=== PATIENT | female | born 1965 | race Caucasian/White ===

== ENCOUNTER 2019-02-07 10:02 | Outpatient (CLI) | payer MEDICARE, MEDICAID ==
[2019-02-07 10:52] LABS: BASOPHILS % (AUTO) 0.5 %; EOSINOPHILS # (AUTO) 0.2 10^3/uL (0.0-0.7); EOSINOPHILS % (AUTO) 2.6 %; HGB - HEMOGLOBIN 12.2 g/dL (12.0-16.0); LYMPHOCYTES # (AUTO) 2.8 10^3/uL (1.5-3.5); LYMPHOCYTES % (AUTO) 34.7 %; MEAN CORPUSCULAR HEMOGLOBIN 30.2 pg (27.0-31.0); MEAN CORPUSCULAR HGB CONC 33.2 g/dL (32.0-36.0); MEAN CORPUSCULAR VOLUME 91.1 fL (81.0-99.0); MEAN PLATELET VOLUME 8.9 fL (7.9-10.8); MONOCYTES # (AUTO) 0.6 10^3/uL (0.0-1.0); MONOCYTES % (AUTO) 6.9 %; NEUTROPHILS # (AUTO) 4.4 10^3/uL (1.5-6.6); NEUTROPHILS % (AUTO) 54.9 %; PLT - PLATELET COUNT 416 10^3/uL (130-450); RED BLOOD COUNT 4.04 10^6/uL (4.20-5.40); RED CELL DISTRIBUTION WIDTH 12.7 % (12.0-15.0); WHITE BLOOD COUNT 8.1 x10^3/uL (4.8-10.8)
[2019-02-07 11:35] LABS: ALBUMIN 3.8 g/dL (3.2-5.5); ALBUMIN/GLOBULIN RATIO 1.4 (1.0-2.2); ALKALINE PHOSPHATASE 72 IU/L (42-121); ALT ALANINE AMINOTRANSFERASE 18 IU/L (10-60); AST ASPARTATE AMINOTRANSFERASE 15 IU/L (10-42); BILIRUBIN,TOTAL 0.5 mg/dL (0.2-1.0); BUN - BLOOD UREA NITROGEN 10 mg/dL (6-20); CARBON DIOXIDE - CO2 25 mmol/L (21-32); CHLORIDE 106 mmol/L (101-111); CHOLESTEROL 147 mg/dL; CREATININE 0.9 mg/dL (0.4-1.0); GFR - MDRD 65 (>89); GLUCOSE 97 mg/dL (70-100); HDL CHOLESTEROL 37 mg/dL; LDL CHOLESTEROL,CALCULATED 77 mg/dL; LDL/HDL RATIO 2.1 (<4.4); SODIUM 140 mmol/L (135-145); TOTAL PROTEIN 6.6 g/dL (6.7-8.2); VLDL CHOLESTEROL 33 mg/dL
--- NOTE | 2019-02-07 14:12 | Ultrasound Report ---
Reason: LIPOMA OF ABDOMINAL WALL Procedure Date: 02/07/2019 Accession Number: [id number] / [id number] Procedure: US - Abdomen Limited CPT Code: FULL RESULT: EXAM: ABDOMEN ULTRASOUND LIMITED, RUQ EXAM DATE: 02/07/2019 11:11 AM. CLINICAL HISTORY: Lipoma of abdominal wall. COMPARISON: None. TECHNIQUE: Real-time scanning was performed with static images obtained. FINDINGS: Abdominal wall soft tissues as indicated by the patient were interrogated for the focally palpable finding. No mass or collection is identified. IMPRESSION: Normal soft tissues. RADIA
== END 2019-02-07 10:03 | disposition home or self-care (01) ==
LOC: DI 10:02
PROVIDERS: ATTEND Physician Assistant
DX: D17.79 Benign lipomatous neoplasm of other sites (principal); K58.9 Irritable bowel syndrome, unspecified; K59.00 Constipation, unspecified; E66.9 Obesity, unspecified; K21.9 Gastro-esophageal reflux disease without esophagitis; J45.20 Mild intermittent asthma, uncomplicated
CPT/HCPCS: 36415; 76705; 80053; 80061; 83721; 84443; 85025

== ENCOUNTER 2019-02-21 08:00 | Outpatient (CLI) | payer MEDICARE, MEDICAID | END 2019-02-21 08:01 | disposition home or self-care (01) | LOC: LAB.WCP 08:00 | PROVIDERS: ATTEND Physician Assistant | DX: R39.15 Urgency of urination (principal) | CPT/HCPCS: 81002 ==

== ENCOUNTER 2019-02-24 10:30 | Outpatient (CLI) | payer MEDICARE, MEDICAID ==
[2019-02-24 23:03] LABS: TRICHOMONAS VAGINALIS DNA NEGATIVE (NEGATIVE)
== END 2019-02-24 23:59 | disposition home or self-care (01) ==
LOC: LAB.WCP 10:30
PROVIDERS: ATTEND Physician Assistant
DX: Z20.2 Contact with and (suspected) exposure to infections with a predominantly sexual mode of transmission (principal)
CPT/HCPCS: 87491; 87591; 87661

== ENCOUNTER 2019-02-27 15:03 | Outpatient (CLI) | payer MEDICARE, MEDICAID ==
[2019-02-27] MEDS ORDERED: IOVERSOL 320 100 ML VIAL IVP ONE ×2 (15:14→16:39)
[2019-02-27] MEDS ORDERED: IOVERSOL 320 50 ML VIAL ONE (15:14)
[2019-02-27] MEDS ORDERED: IOVERSOL 320 50 ML VIAL PO ONE (16:39)
--- NOTE | 2019-02-28 06:43 | CT Report ---
Reason: SUBCUTANEOUS MASS OF ABDOMINAL WALL Procedure Date: 02/27/2019 Accession Number: [id number] / [id number] Procedure: CT - Abdomen/Pelvis W CPT Code: FULL RESULT: EXAM: CT ABDOMEN AND PELVIS EXAM DATE: 02/27/2019 04:09 PM. CLINICAL HISTORY: SUBCUTANEOUS MASS OF ABDOMINAL WALL. COMPARISONS: ABDOMEN LIMITED 02/07/2019 10:53 AM. TECHNIQUE: Routine helical CT imaging was performed through the abdomen and pelvis. IV contrast: OPTI 320 100ML. Enteric contrast: Yes. Reconstructions: Coronal and sagittal. In accordance with CT protocol optimization, one or more of the following dose reduction techniques were utilized for this exam: automated exposure control, adjustment of mA and/or KV based on patient size, or use of iterative reconstructive technique. FINDINGS: Lung Bases: Unremarkable. Liver: Mild hepatomegaly with right hepatic lobe measuring 21.1 cm in craniocaudal dimension. Multiple small hypodense hepatic lesion suggestive of cysts. Gallbladder/Bile Ducts: Partially contracted gallbladder. No radiopaque gallstones. No biliary dilation. Spleen: Lobulated spleen with probable splenule inseparable from the pancreatic tail. Pancreas: No peripancreatic fluid or inflammation. Probable splenule inseparable from pancreatic tail. Adrenal Glands: Mild fullness of left adrenal gland without distinct nodule. Unremarkable right adrenal gland. Kidneys: Subcentimeter right renal cyst. Small nonobstructive left lower pole renal calculus. Suspect punctate nonobstructive right lower pole renal calculus. No hydronephrosis or ureteral calculus. Peritoneal Cavity/Bowel: No free fluid, free air or adenopathy. No masses or acute inflammatory process. The appendix is well visualized and normal. No bowel obstruction or significant bowel wall thickening. Colonic diverticula without evidence of acute diverticulitis. Pelvic Organs: Normal. The bladder and visualized pelvic organs are within normal limits. Vasculature: No aneurysms or other significant abnormality. Bones: No acute abnormality. Degenerative change at L5-S1. Other: Infraumbilical ventral hernia just right of midline containing fat with minimal stranding within the fat surrounding hernia and at base of hernia. Hernia measures approximately 8.0 x 3.3 x 5.3 cm. IMPRESSION: 1. Fat-containing infraumbilical ventral hernia just to the right of midline with minimal stranding within fat surrounding hernia and at base of hernia. Strangulation/incarceration of fat within herniated not excluded in the appropriate clinical setting. Correlate for associated symptoms. Fat-containing hernia may correspond to palpable abdominal wall mass. 2. Small nonobstructive lower pole renal calculi. No hydronephrosis or ureteral calculus. 3. Mild hepatomegaly and hypodense hepatic lesions suggestive of hepatic cysts. 4. Few colonic diverticula without evidence of acute diverticulitis. RADIA
== END 2019-02-27 15:04 | disposition home or self-care (01) ==
LOC: DI 15:03
PROVIDERS: ATTEND Physician Assistant
DX: K43.9 Ventral hernia without obstruction or gangrene (principal); N20.0 Calculus of kidney; R16.0 Hepatomegaly, not elsewhere classified; K57.30 Diverticulosis of large intestine without perforation or abscess without bleeding
CPT/HCPCS: 74177; Q9967

== ENCOUNTER 2019-04-14 16:11 | Outpatient (CLI) | payer MEDICARE, MEDICAID ==
--- NOTE | 2019-04-14 18:05 | XRAY Report ---
Reason: CHRONIC PX SUB 5TH MT BASE RT FOOT Procedure Date: 04/14/2019 Accession Number: [id number] / [id number] Procedure: XR - Foot 3 View RT CPT Code: FULL RESULT: EXAM: RIGHT FOOT RADIOGRAPHY EXAM DATE: 04/14/2019 04:31 PM. CLINICAL HISTORY: Chronic pain sub 5th metatarsal base right foot. COMPARISON: None. TECHNIQUE: 3 views. FINDINGS: Bones: Plantar calcaneal spur. No fractures or bone lesions. Joints: Minimal first metatarsophalangeal joint degenerative changes. No subluxations. Soft Tissues: Normal. No soft tissue swelling. IMPRESSION: 1. No acute abnormality seen in the right foot. 2. Minimal first metatarsophalangeal joint degenerative changes. RADIA
== END 2019-04-14 16:12 | disposition home or self-care (01) ==
LOC: DI 16:11
PROVIDERS: ATTEND Podiatrist
DX: M19.071 Primary osteoarthritis, right ankle and foot (principal)

== ENCOUNTER 2019-05-05 08:00 | Outpatient (CLI) | payer MEDICARE, MEDICAID ==
[2019-05-05 21:26] LABS: CANDIDA GROUP DNA NEGATIVE (NEGATIVE); CANDIDA KRUSEI DNA NEGATIVE (NEGATIVE); TRICHOMONAS VAGINALIS DNA NEGATIVE (NEGATIVE)
== END 2019-05-05 23:59 | disposition home or self-care (01) ==
LOC: LAB.R 08:00
PROVIDERS: ATTEND Obstetrics & Gynecology
DX: N76.0 Acute vaginitis (principal)
CPT/HCPCS: 87661; 87801

== ENCOUNTER 2019-05-26 16:30 | Outpatient (CLI) | payer MEDICARE, MEDICAID ==
--- NOTE | 2019-05-29 01:21 | XRAY Report ---
Reason: PAINFUL L FOOT Procedure Date: 05/26/2019 Accession Number: [id number] / [id number] Procedure: XR - Foot 3 View LT CPT Code: FULL RESULT: EXAM: LEFT FOOT RADIOGRAPHY EXAM DATE: 05/26/2019 05:03 PM. CLINICAL HISTORY: PAINFUL L FOOT. COMPARISON: FOOT 3 VIEW RT 04/14/2019 4:25 PM. TECHNIQUE: 3 views. FINDINGS: Bones: No fractures or bone lesions. Large plantar calcaneal spur. Joints: No subluxation. Lisfranc alignment appears intact. Soft Tissues: No significant soft tissue abnormalities. IMPRESSION: 1. No acute osseous abnormalities. 2. Lisfranc alignment appears intact. 3. Large plantar calcaneal spur. RADIA
== END 2019-05-26 16:31 | disposition home or self-care (01) ==
LOC: DI 16:30
PROVIDERS: ATTEND Podiatrist
DX: M77.32 Calcaneal spur, left foot (principal)

== ENCOUNTER 2019-06-26 15:07 | Outpatient (CLI) | payer MEDICARE, MEDICAID | END 2019-06-26 15:08 | disposition home or self-care (01) | LOC: RT 15:07 | PROVIDERS: ATTEND Surgery | DX: Z01.810 Encounter for preprocedural cardiovascular examination (principal); K43.9 Ventral hernia without obstruction or gangrene | CPT/HCPCS: 93005 ==

== ENCOUNTER 2019-06-27 06:11 | Day surgery (SDC) | payer MEDICARE, MEDICAID ==
[2019-06-27] MEDS ORDERED: LACTATED RINGERS 1,000 ML IV ONE (06:48)
--- NOTE | 2019-06-27 07:06 | ANESTHESIA ---
Pre-Anesthesia VS, & Labs - Diagnosis ventral hernia - Procedure ventral hernia repair Vital Signs: Temp Pulse Resp BP Pulse Ox 36.1 C L 67 18 163/108 H 98 06/27/19 06:35 06/27/19 06:35 06/27/19 06:35 06/27/19 06:35 06/27/19 06:35 Height 5 ft 3 in Weight (kg) 116.8 kg - NPO >8 hours - Is Patient ?: No Home Medications and Allergies Home Medications: Ambulatory Orders Albuterol Sulf [Ventolin Hfa Inhaler] 1 - 2 puffs INH Q4HR PRN 06/26/19 Aspirin/Acetaminophen/Caffeine [Excedrin Migraine Caplet] 1 each PO ONCE PRN 06/26/19 Albuterol Sulf [Ventolin Hfa Inhaler] 1 - 2 puffs INH Q4HR PRN 06/26/19 Aspirin/Acetaminophen/Caffeine [Excedrin Migraine Caplet] 1 each PO ONCE PRN 06/26/19 Allergies/Adverse Reactions: Allergies Allergy/AdvReac Type Severity Reaction Status Date / Time No Known Drug Allergies Allergy Verified 06/26/19 11:08 Anes History & Medical History - Anesthetic History Anesthesia Complications: reports: No previous complications - Medical History Cardiovascular: reports: None Pulmonary: reports: Asthma Gastrointestinal: reports: Colon polyps. denies: GERD Urinary: reports: None Neuro: reports: Migraines Musculoskeletal: reports: Osteoarthritis Endocrine/Autoimmune: reports: None Skin: reports: Other Smoking Status: Never smoker - Surgical History General: Colonoscopy Gynecologic: section, LEEP (Cervical surgery) Dermatologic: Skin cancer surgery Exam General: Alert Dental: WNL Mouth Opening: Greater than 4 Fingerbreadths Mallampati classification: II Thyromental Distance: greater than 6 cm Respiratory: Decreased breath sounds Cardiovascular: Regular rate, Normal S1, Normal S2 Mental/Cognitive Status: Alert/Oriented X3 Plan Anesthesia Type: General Consent for Procedure(s) Verified and Reviewed: Yes Code Status: Attempt Resuscitation ASA classification: 2-Mild systemic disease Is this case an emergency?: No
[2019-06-27] MEDS ORDERED: CEFAZOLIN SODIUM IN 0.9 % NACL 2 GM/100 ML BAG IV ONE (07:13)
[2019-06-27] MEDS ORDERED: ceFAZolin 1 GM VIAL ONE (07:17)
[2019-06-27] MEDS ORDERED: PROPOFOL 200 MG/20 ML VIAL IVP ONE (07:34)
[2019-06-27] MEDS ORDERED: KETOROLAC 30 MG/ML VIAL IVP ONE (07:34)
[2019-06-27] MEDS ORDERED: LIDOCAINE-MPF 2% 5 ML VIAL IM ONE (07:34)
[2019-06-27] MEDS ORDERED: MIDAZOLAM 2 MG/2 ML VIAL IVP ONE (07:34)
[2019-06-27] MEDS ORDERED: DEXAMETHASONE 4 MG/ML VIAL IVP ONE (07:34)
[2019-06-27] MEDS ORDERED: fentaNYL 100 MCG/2 ML VIAL IVP ONE (07:34)
[2019-06-27] MEDS ORDERED: ONDANSETRON 4 MG/2 ML VIAL IVP ONE (07:34)
[2019-06-27] MEDS: LIDOCAINE 1%-EPI 1:100000 20 ML MDV ONE ×2 (07:51→08:30)
[2019-06-27] MEDS: BUPIVACAINE 0.5% PF 30 ML VIAL ONE ×2 (07:51→08:30)
--- NOTE | 2019-06-27 08:40 | OPERATIVE REPORT ---
Operative Report - General Procedure Date: 06/27/19 Planned Procedure: Ventral Hernia Repair Pre-Op Diagnosis: Painful incarcerated ventral hernia Procedure Performed: Ventral Hernia Repair Post Op Diagnosis: Painful and incarcerated ventral hernia - Procedure Note Primary Surgeon: Brady Anesthesia Provider: JUAN JOSE Bains Anesthesia Technique: General LMA, Local Pathology: None Estimated Blood Loss (mL): 10 Findings: 2.5 cm circular defect with a 9 cm hernia sack containing omentum Complications: None apparent - Other Other Information/Narrative: After obtaining informed consent, the patient is brought to the operating room and placed in the supine position on the operating table. Following successful induction of general anesthesia, appropriate padding of all bony prominences, and placement of appropriate monitors, the abdomen was prepped and draped in the standard surgical fashion. A timeout was held per scope protocol. All elements of the surgical safety checklist were followed before, during, and after the procedure. Following infiltration with local anesthetic to create a field block, an incision was created inferior to the umbilicus and carried down through the skin and subcutaneous tissue. This was at the site where the CT had identified the hernia. The hernia sac was immediately identified. A Anthony retractor was placed in the edges of the hernia carefully defined. The hernia itself contained a knuckle of omentum that was viable. The hernia sac was removed from the omentum and the omentum placed back into the abdominal cavity without injury . What remained was a 2.5 cm defect that had held a 9 cm hernia.We elected to repair the defect with a ventral Phillip patch. A 6.4 cm patch was chosen. It was dipped briefly in Ancef solution and the deployed into the defect. The anterior leaflets were then sewn to the fascia with Vicryl suture.The wound was checked for hemostasis and irrigated with Ancef containing solution. It was closed in multiple layers with Vicryl and Monocryl suture. All sponge, needle, and instrument counts were correct at the conclusion of the case. The patient was allowed to awaken from anesthesia without difficulty and taken to the postanesthesia care unit in good condition.
[2019-06-27] MEDS ORDERED: ONDANSETRON 4 MG/2 ML VIAL IVP PRN (08:50)
[2019-06-27] MEDS ORDERED: ACETAMINOPHEN 325 MG TABLET PO PRN (08:50)
[2019-06-27] MEDS ORDERED: IBUPROFEN 600 MG TABLET PO PRN (08:50)
[2019-06-27] MEDS ORDERED: HYDROmorphone 0.5 MG/0.5 ML SYRINGE ONE (09:06)
[2019-06-27] MEDS ORDERED: ACETAMINOPHEN 1,000 MG/100 ML 100 ML IV ONE (09:06)
[2019-06-27] MEDS ORDERED: oxyCODONE 5 MG TABLET ONE (09:41)
[2019-06-27] MEDS: oxyCODONE 5 MG TABLET PO PRN ×3 (13:56→23:59)
[2019-06-27] MEDS: KETOROLAC 30 MG/ML VIAL IVP PRN ×2 (16:20→22:49)
[2019-06-27] MEDS: SODIUM CHLORIDE FLUSH 0.9% 10 ML SYRINGE IVP SCH (16:20)
[2019-06-27] MEDS: SODIUM CHLORIDE FLUSH 0.9% 10 ML SYRINGE IVP PRN ×2 (22:50→23:59)
[2019-06-28] MEDS: SODIUM CHLORIDE FLUSH 0.9% 10 ML SYRINGE IVP SCH ×2 (00:06→08:26)
[2019-06-28] MEDS: oxyCODONE 5 MG TABLET PO PRN (04:18)
[2019-06-28 08:07] VITALS: BP 118/61
[2019-06-28] MEDS ORDERED: ENOXAPARIN 40 MG/0.4 ML SYRINGE SUBQ SCH (09:00)
--- NOTE | 2019-06-28 09:42 | Discharge Plan ---
Discharge Plan Problem Reviewed?: Yes Disposition: Home, Self Care Condition: Good Prescriptions: Ondansetron Odt [Zofran] 4 mg TL Q6H PRN #10 tablet PRN Reason: Nausea / Vomiting oxyCODONE [Roxicodone] 5 mg PO Q4-6H PRN #20 tablet PRN Reason: Pain Diet: Regular Activity Restrictions: Do not lift more than 10 pound for 6 weeks Shower Restrictions: No Driving Restrictions: Yes (Do not drive while taking narcotic pain medication) No Smoking: If you smoke, Please STOP! Call for help. Follow-up with: Madeline Ruggiero PA [Primary Care Provider] -
== END 2019-06-28 11:45 | disposition home or self-care (01) ==
LOC: SDS 06:11 → MS2 11:16 → SDS 06-28 11:45
PROVIDERS: ATTEND Surgery
PROC: 0WUF0JZ Supplement Abdominal Wall with Synthetic Substitute, Open Approach (ICD-10-PCS; principal; 2019-06-27 07:30)
DX: K43.6 Other and unspecified ventral hernia with obstruction, without gangrene (principal); J45.20 Mild intermittent asthma, uncomplicated; E66.9 Obesity, unspecified; G80.9 Cerebral palsy, unspecified; Z68.42 Body mass index [BMI] 45.0-49.9, adult; Z79.899 Other long term (current) drug therapy
CPT/HCPCS: 49561; 49568; A9270; C1781; J0131; J0690; J1170; J1650; J7120

== ENCOUNTER 2019-07-15 14:01 | Outpatient (CLI) | payer MEDICARE, MEDICAID ==
--- NOTE | 2019-07-16 15:45 | XRAY Report ---
Reason: RIGHT THUMB PAIN Procedure Date: 07/15/2019 Accession Number: [id number] / [id number] Procedure: XR - Finger(s) RT CPT Code: Final Report FULL RESULT: EXAM: RIGHT FIRST DIGIT RADIOGRAPHY EXAM DATE: 07/15/2019 02:17 PM. CLINICAL HISTORY: RIGHT THUMB PAIN. COMPARISON: None. TECHNIQUE: 3 views. FINDINGS: Bones: No fractures or bone lesions. Joints: Mild DJD first MCP joint. Otherwise unremarkable. Soft Tissues: Unremarkable. IMPRESSION: 1. No acute osseous abnormality. RADIA
== END 2019-07-15 14:02 | disposition home or self-care (01) ==
LOC: DI 14:01
PROVIDERS: ATTEND Physician Assistant
DX: M79.644 Pain in right finger(s) (principal)
CPT/HCPCS: 73140

== ENCOUNTER 2020-05-27 15:24 | Outpatient (CLI) | payer MEDICARE, MEDICAID ==
[2020-05-27] MEDS ORDERED: IOVERSOL 320 100 ML VIAL IVP ONE ×2 (15:40→18:35)
[2020-05-27] MEDS ORDERED: IOVERSOL 320 50 ML VIAL ONE (15:40)
--- NOTE | 2020-05-27 18:30 | CT Report ---
PROCEDURE: Abdomen/Pelvis W INDICATIONS: ABDOMINAL PAIN CONTRAST: IV CONTRAST: Optiray 320 ml: 100 PO CONTRAST: Optiray 320 ml50 TECHNIQUE: After the administration of oral and intravenous contrast, 5 mm thick sections acquired from the diap hragms to the symphysis. 5 mm thick coronal and sagittal reformats were acquired. For radiation dos e reduction, the following was used: automated exposure control, adjustment of mA and/or kV accordin g to patient size. COMPARISON: None. FINDINGS: Image quality: Excellent. ABDOMEN: Lung bases: Lung bases are clear. Heart size is normal. Tiny hiatal hernia. Solid organs: Liver and spleen are normal in size. There are multiple low-density nodules in liver, most likely cysts or hemangiomas. Gallbladder is normal Biliary system is non dilated. Pancreas en hances normally. No adrenal nodules. Kidneys demonstrate normal size and enhancement, without hydro nephrosis. Peritoneum and bowel: Bowel loops demonstrate normal wall thickness and caliber. There are colonic diverticula. No CT findings to suggest acute diverticulitis. No free fluid or air. Nodes and vessels: No retroperitoneal or mesenteric adenopathy by size criteria. Aorta and inferior vena cava are normal in size. Miscellaneous: There is diastases of rectus abdominis sheath. Mild stranding of anterior abdominal w all wound a midline surgical scar. PELVIS: Genitourinary: Bladder wall thickness is normal. Miscellaneous: No inguinal hernias. Enlarged inguinal lymph nodes are present bilaterally measuring up to 1.3 cm. Bones: No suspicious bony lesions. No vertebral body compression fractures. Mild degenerative carrillo ges in the lower thoracic and lumbar spine. IMPRESSION: 1. Diverticulosis without acute diverticulitis. 2. Diastases of rectus abdominis sheath, but no ventral hernia. 3. Mildly enlarged inguinal lymph nodes laterally measure up to 1.3 cm. The lymph nodes are most like ly reactive. Recommend clinical follow-up. 4. Hepatic steatosis. 5. Small hepatic hypodensities are most likely cysts or hemangiomas. Reviewed by: Stefany Bro MD on 05/27/2020 6:29 PM PDT Approved by: Stefany Bro MD on 05/27/2020 6:29 PM PDT Station ID: [id number]
[2020-05-27] MEDS ORDERED: IOVERSOL 320 50 ML VIAL PO ONE (18:35)
== END 2020-05-27 15:25 | disposition home or self-care (01) ==
LOC: DI 15:24
PROVIDERS: ATTEND Internal Medicine
DX: K57.30 Diverticulosis of large intestine without perforation or abscess without bleeding (principal); M62.08 Separation of muscle (nontraumatic), other site; R59.0 Localized enlarged lymph nodes; K76.0 Fatty (change of) liver, not elsewhere classified; R93.2 Abnormal findings on diagnostic imaging of liver and biliary tract
CPT/HCPCS: 74177; Q9967

== ENCOUNTER 2021-02-07 15:07 | Outpatient (CLI) | payer MEDICARE, MEDICAID ==
--- NOTE | 2021-02-07 16:53 | Ultrasound Report ---
PROCEDURE: Pelvic Complete INDICATIONS: ABN PX TECHNIQUE: Real-time transabdominal scanning was performed of the pelvic organs, with image documentation. COMPARISON: None FINDINGS: Examination limited by body habitus. Uterus: Uterus is normal in size at 9.4 x 3.7 x 5.6 cm. Endometrium measures 4 mm in combined thick ness. Ovaries: Not seen. No adnexal masses. Other: No free pelvic fluid. IMPRESSION: Limited negative examination. Reviewed by: Jessie Maki MD on 02/07/2021 4:52 PM PDT Approved by: Jessie Maki MD on 02/07/2021 4:52 PM PDT Station ID: [id number]
--- NOTE | 2021-02-07 17:02 | Ultrasound Report ---
PROCEDURE: Abdomen Complete INDICATIONS: ABD PAIN TECHNIQUE: Real-time scanning was performed of the abdominal and retroperitoneal organs, with image documentatio n. COMPARISON: None. FINDINGS: Examination is limited by body habitus. Liver: Liver is enlarged, measuring 19.7 cm and demonstrates diffusely increased echogenicity. Multi ple hepatic cysts are present. Gallbladder: Demonstrates a polyp within the anterior wall measuring 3 mm. No wall thickening. No cho lelithiasis. Biliary ducts: Intrahepatic bile ducts are non-dilated. Extrahepatic bile duct caliber measures 5 m m. Normal is 6-7 mm or less in diameter, or 10 mm or less post-cholecystectomy. Pancreas: Visualized portions of the pancreas are sonographically normal. Spleen: Spleen is normal in size and homogeneous in echotexture. Kidneys: Kidneys are normal in size and echotexture. Right kidney measures 11.5 cm long; left kidne y measures 11 point cm long. No hydronephrosis or nephrolithiasis. No solid masses. Aorta: Visualized aorta is normal in caliber at less than 3 cm. Iliacs: Proximal common iliac arteries are normal in caliber at less than 2.5 cm. IVC: Intrahepatic inferior vena cava is patent. Miscellaneous: No free abdominal fluid. IMPRESSION: 1. Hepatic steatosis. 2. Gallbladder polyp. Reviewed by: Jessie Maki MD on 02/07/2021 5:00 PM PDT Approved by: Jessie Maki MD on 02/07/2021 5:00 PM PDT Station ID: [id number]
== END 2021-02-07 15:08 | disposition home or self-care (01) ==
LOC: DI 15:07
PROVIDERS: ATTEND Internal Medicine
DX: R10.9 Unspecified abdominal pain (principal); K76.0 Fatty (change of) liver, not elsewhere classified; K82.4 Cholesterolosis of gallbladder

== ENCOUNTER 2021-06-25 11:44 | Outpatient (CLI) | payer MEDICARE, MEDICAID ==
--- NOTE | 2021-07-02 14:59 | Mammography Report ---
BILATERAL DIGITAL SCREENING MAMMOGRAM 3D/2D: 06/25/2021 CLINICAL: Routine screening. No prior exams were available for comparison. There are scattered fibroglandular elements in both br easts. No significant masses, calcifications, or other findings are seen in either breast. IMPRESSION: NEGATIVE There is no mammographic evidence of malignancy. A 1 year screening mammogram is recommended. This exam was interpreted at Station ID: [id number]. NOTE: For mammograms, a report in lay terms will be sent to the patient. Approximately 15% of breast malignancies will not be visualized mammographically. In the management of a palpable breast mass, a negative mammogram must not discourage biopsy of a clinically suspicious lesion. Electronically Signed By: Maxi aguillon/[email or web address]:07/02/2021 08:08:27 ACR BI-RADS Category 1: Negative 3341F PARENCHYMAL PATTERN: (A) - The breast(s) demonstrate(s) scattered fibroglandular densities. BI-RADS CATEGORY: (1) - 1 RECOMMENDATION: (ANNUAL) - Recommend routine annual screening mammography. [id number] 1 year screening LATERALITY: (B)
== END 2021-06-25 11:45 | disposition home or self-care (01) ==
LOC: DI.N 11:44
PROVIDERS: ATTEND Internal Medicine
DX: Z12.31 Encounter for screening mammogram for malignant neoplasm of breast (principal)

== ENCOUNTER 2021-10-16 13:04 | Outpatient (CLI) | payer MEDICARE, MEDICAID ==
[2021-10-16 13:21] LABS: BASOPHILS % (AUTO) 0.4 %; EOSINOPHILS # (AUTO) 0.1 10^3/uL (0.0-0.7); HCT - HEMATOCRIT 37.8 % (37.0-47.0); HGB - HEMOGLOBIN 12.8 g/dL (12.0-16.0); LYMPHOCYTES # (AUTO) 3.1 10^3/uL (1.5-3.5); LYMPHOCYTES % (AUTO) 33.2 %; MEAN CORPUSCULAR HEMOGLOBIN 30.9 pg (27.0-31.0); MEAN CORPUSCULAR HGB CONC 33.9 g/dL (32.0-36.0); MEAN CORPUSCULAR VOLUME 91.3 fL (81.0-99.0); MONOCYTES # (AUTO) 0.6 10^3/uL (0.0-1.0); MONOCYTES % (AUTO) 6.4 %; NEUTROPHILS # (AUTO) 5.5 10^3/uL (1.5-6.6); NEUTROPHILS % (AUTO) 58.8 %; PLT - PLATELET COUNT 462 10^3/uL (130-450); RED BLOOD COUNT 4.14 10^6/uL (4.20-5.40); RED CELL DISTRIBUTION WIDTH 12.3 % (12.0-15.0); WHITE BLOOD COUNT 9.3 x10^3/uL (4.8-10.8)
[2021-10-16 13:46] LABS: ALBUMIN 4.2 g/dL (3.2-5.5); ALBUMIN/GLOBULIN RATIO 1.3 (1.0-2.2); ALKALINE PHOSPHATASE 65 IU/L (42-121); ALT ALANINE AMINOTRANSFERASE 23 IU/L (10-60); AST ASPARTATE AMINOTRANSFERASE 19 IU/L (10-42); BILIRUBIN,TOTAL 0.6 mg/dL (0.2-1.0); BUN - BLOOD UREA NITROGEN 15 mg/dL (6-20); CALCIUM 8.8 mg/dL (8.5-10.3); CARBON DIOXIDE - CO2 27 mmol/L (21-32); CHLORIDE 101 mmol/L (101-111); CHOL/HDL RATIO 3.4 (<4.4); CHOLESTEROL 187 mg/dL; CREATININE 0.7 mg/dL (0.4-1.0); GFR - MDRD 87 (>89); GLUCOSE 98 mg/dL (70-100); HDL CHOLESTEROL 55 mg/dL; LDL CHOLESTEROL,CALCULATED 111 mg/dL; SODIUM 138 mmol/L (135-145); TOTAL PROTEIN 7.5 g/dL (6.7-8.2); TRIGLYCERIDES 106 mg/dL; VLDL CHOLESTEROL 21 mg/dL
--- NOTE | 2021-10-16 15:14 | Ultrasound Report ---
PROCEDURE: Abdomen Limited INDICATIONS: POLYP OF GALLBLADDER TECHNIQUE: Real-time focused scanning was performed of the abdomen, with image documentation. COMPARISON: February 07, 2021 FINDINGS: AORTA: The visualized abdominal aorta is normal. IVC: The visualized IVC is normal. LIVER: Measures 20.3 cm in length. Increased echogenicity. Redemonstrated multiple hypoechoic lesio ns throughout the liver, most consistent with cysts, measuring up to 2 cm. PANCREAS: The visualized portions of the pancreas are normal. Gallbladder and biliary tree: No gallbladder wall thickening, pericholecystic fluid, or shadowing g allstones. The previously demonstrated gallbladder polyps are visualized. The common bile duct measures 5 mm. RIGHT KIDNEY: No hydronephrosis. Measuring 10.1 cm in length. The renal cortex thickness measures 1 .1 cm. A hypoechoic, partially exophytic, cortical lesion is seen, measuring up to 11 mm, which conta ins a dependent echogenic focus. No ascites. IMPRESSION: 1.Hepatomegaly with steatosis. 2.Cyst in the right interpolar region, which may contain milk of calcium. 3.Nonvisualization of the previously demonstrated gallbladder polyp. Reviewed by: Brendan Blackwell MD on 10/16/2021 3:13 PM PDT Approved by: Brendan Blackwell MD on 10/16/2021 3:13 PM PDT Station ID: [id number]
== END 2021-10-16 13:05 | disposition home or self-care (01) ==
LOC: DI 13:04
PROVIDERS: ATTEND Physician Assistant
DX: Z00.00 Encounter for general adult medical examination without abnormal findings (principal); K82.4 Cholesterolosis of gallbladder; K76.0 Fatty (change of) liver, not elsewhere classified; R16.0 Hepatomegaly, not elsewhere classified; K76.89 Other specified diseases of liver
CPT/HCPCS: 36415; 80053; 80061; 83721; 85025

== ENCOUNTER 2021-11-02 07:00 | Outpatient (CLI) | payer MEDICARE, MEDICAID ==
[2021-11-03 21:08] LABS: FECAL OCCULT BLOOD (FIT) NEGATIVE (NEGATIVE)
== END 2021-11-02 23:59 | disposition home or self-care (01) ==
LOC: LAB.N 07:00
PROVIDERS: ATTEND Physician Assistant
DX: Z00.00 Encounter for general adult medical examination without abnormal findings (principal)
CPT/HCPCS: 82274

== ENCOUNTER 2021-12-23 13:33 | Outpatient (CLI) | payer MEDICARE, MEDICAID ==
[2021-12-23] MEDS ORDERED: IOPAMIDOL-300 50 ML VIAL PO ONE (15:21)
[2021-12-23] MEDS ORDERED: IOVERSOL 320 100 ML VIAL IVP ONE (15:22)
--- NOTE | 2021-12-23 18:46 | CT Report ---
PROCEDURE: Abdomen/Pelvis W INDICATIONS: DIASTASIS RECTI, ABD PAIN CONTRAST: IV CONTRAST: Optiray 320 ml: 100 PO CONTRAST: Isovue 300 ml50 TECHNIQUE: After the administration of weight appropriate dose of intravenous contrast, 5 mm thick sections acqu ired from the diaphragms to the symphysis. 5 mm thick coronal and sagittal reformats were acquired. For radiation dose reduction, the following was used: automated exposure control, adjustment of mA and/or kV according to patient size. COMPARISON: 05/27/2020 FINDINGS: Image quality: Excellent. ABDOMEN: Lung bases: Lung bases are clear. Heart size is normal. Solid organs: Liver and spleen are normal in size and enhancement. Stable appearance of multiple hep atic hypodensities likely representing cysts or hemangiomas. Gallbladder is unremarkable. Biliary sy stem is non dilated. Pancreas enhances normally. No adrenal nodules. Kidneys demonstrate normal si ze and enhancement, without hydronephrosis. A few punctate densities noted in the bilateral kidneys measuring up to 3 mm bilaterally. These may represent nonobstructing renal stones. Ureters are normal in course and caliber. Peritoneum and bowel: Bowel loops demonstrate normal wall thickness and caliber. Scattered colonic diverticulosis without acute diverticulitis. No free fluid or air. Nodes and vessels: No retroperitoneal or mesenteric adenopathy by size criteria. Aorta and inferior vena cava are normal in size. Miscellaneous: Stable postsurgical changes involving the midline lower abdomen/pelvis with associated stranding that likely represents postsurgical scarring. Cephalad to postsurgical changes there is di astases recti without evidence for ventral hernias. PELVIS: Genitourinary: Bladder wall thickness is normal. Miscellaneous: No inguinal hernias or adenopathy. A few scattered pelvic and inguinal lymph nodes as before. These do not meet size criteria for pathology. These are more notable for number rather than size and may be reactive in etiology. Findings are more pronounced on the left side. Bones: No suspicious bony lesions. No acute vertebral body compression fractures. Multilevel spondy losis most pronounced in the lower lumbar spine. IMPRESSION: 1. CT abdomen and pelvis without acute abnormalities. 2. Redemonstration of diastases recti without evidence for ventral wall hernias. 3. Colonic diverticulosis without acute diverticulitis. 4. Stable appearance of small scattered hepatic hypodensities which likely represent cysts or hemangi omas. 5. Small punctate hyperdensities in the bilateral kidneys measuring up to 3 mm. These may represent v ascular calcifications or nonobstructing renal stones. No hydronephrosis or perinephric stranding. Reviewed by: Harris Silvestre MD on 12/23/2021 6:45 PM PDT Approved by: Harris Silvestre MD on 12/23/2021 6:45 PM PDT Station ID: [id number]
== END 2021-12-23 13:34 | disposition home or self-care (01) ==
LOC: DI 13:33
PROVIDERS: ATTEND Surgery
DX: M62.08 Separation of muscle (nontraumatic), other site (principal); K57.30 Diverticulosis of large intestine without perforation or abscess without bleeding; R16.0 Hepatomegaly, not elsewhere classified; N28.89 Other specified disorders of kidney and ureter
CPT/HCPCS: 74177; Q9967

== ENCOUNTER 2022-05-27 12:41 | Outpatient (CLI) | payer MEDICARE, MEDICAID | END 2022-05-27 12:42 | disposition EMS.NT | LOC: EMS 12:41 | DX: M79.605 Pain in left leg (principal) ==

== ENCOUNTER 2022-09-08 13:12 | Outpatient (CLI) | payer MEDICARE, MEDICAID ==
[2022-09-08 18:01] LABS: BASOPHILS % (AUTO) 0.2 %; EOSINOPHILS # (AUTO) 0.1 10^3/uL (0.0-0.7); EOSINOPHILS % (AUTO) 1.3 %; HCT - HEMATOCRIT 38.2 % (37.0-47.0); HGB - HEMOGLOBIN 12.2 g/dL (12.0-16.0); LYMPHOCYTES # (AUTO) 2.6 10^3/uL (1.5-3.5); LYMPHOCYTES % (AUTO) 31.3 %; MEAN CORPUSCULAR HEMOGLOBIN 29.7 pg (27.0-31.0); MEAN CORPUSCULAR HGB CONC 31.9 g/dL (32.0-36.0); MEAN CORPUSCULAR VOLUME 92.9 fL (81.0-99.0); MEAN PLATELET VOLUME 9.7 fL (7.9-10.8); MONOCYTES # (AUTO) 0.6 10^3/uL (0.0-1.0); MONOCYTES % (AUTO) 6.8 %; NEUTROPHILS # (AUTO) 4.9 10^3/uL (1.5-6.6); NEUTROPHILS % (AUTO) 60.3 %; PLT - PLATELET COUNT 465 10^3/uL (130-450); RED BLOOD COUNT 4.11 10^6/uL (4.20-5.40); RED CELL DISTRIBUTION WIDTH 12.6 % (12.0-15.0); WHITE BLOOD COUNT 8.2 x10^3/uL (4.8-10.8)
[2022-09-08 18:51] LABS: ALBUMIN/GLOBULIN RATIO 1.2 (1.0-2.2); ALKALINE PHOSPHATASE 63 IU/L (42-121); ALT ALANINE AMINOTRANSFERASE 15 IU/L (10-60); AST ASPARTATE AMINOTRANSFERASE 15 IU/L (10-42); BILIRUBIN,TOTAL 0.6 mg/dL (0.2-1.0); BUN - BLOOD UREA NITROGEN 13 mg/dL (6-20); CALCIUM 10.1 mg/dL (8.5-10.3); CARBON DIOXIDE - CO2 24 mmol/L (21-32); CHLORIDE 102 mmol/L (101-111); CHOL/HDL RATIO 3.8 (<4.4); CHOLESTEROL 169 mg/dL; CREATININE 0.8 mg/dL (0.4-1.0); GFR - MDRD 74 (>89); GLUCOSE 98 mg/dL (70-100); HDL CHOLESTEROL 45 mg/dL; LDL CHOLESTEROL,CALCULATED 104 mg/dL; LDL/HDL RATIO 2.3 (<4.4); POTASSIUM 3.7 mmol/L (3.5-5.0); SODIUM 141 mmol/L (135-145); TOTAL PROTEIN 7.4 g/dL (6.7-8.2); TRIGLYCERIDES 101 mg/dL; VLDL CHOLESTEROL 20 mg/dL
== END 2022-09-08 13:13 | disposition home or self-care (01) ==
LOC: LAB.N 13:12
PROVIDERS: ATTEND Physician Assistant
DX: K76.0 Fatty (change of) liver, not elsewhere classified (principal); E78.5 Hyperlipidemia, unspecified
CPT/HCPCS: 36415; 80053; 80061; 83721; 85025

== ENCOUNTER 2022-09-15 15:24 | Outpatient (CLI) | payer MEDICARE, MEDICAID ==
--- NOTE | 2022-09-16 11:37 | Mammography Report ---
BILATERAL DIGITAL SCREENING MAMMOGRAM 3D/2D: 09/15/2022 CLINICAL: Routine screening. Comparison is made to exam dated: [facility] Both breasts are almost entirely fatty (category a/<25% glandular tissue). No significant masses, calcifications, or other findings are seen in either breast. There has been no significant interval change. IMPRESSION: NEGATIVE There is no mammographic evidence of malignancy. A 1 year screening mammogram is recommended. Based on the Tyrer Cuzick model (a risk assessment model) the patients lifetime risk is 4.5% and her 10 year risk is 1.5%. According to the ACR, ACS, and NCCN guidelines, an annual breast MRI exam jaime g with mammogram is recommended if the patients lifetime risk is 20% or greater. This exam was interpreted at Station ID: [id number]. NOTE: For mammograms, a report in lay terms will be sent to the patient. Approximately 15% of breast malignancies will not be visualized mammographically. In the management of a palpable breast mass, a negative mammogram must not discourage biopsy of a clinically suspicious lesion. Electronically Signed By: Harris Silvestre M.D. aty/penrad:09/16/2022 07:17:43 ACR BI-RADS Category 1: Negative 3341F PARENCHYMAL PATTERN: (F) - The breast(s) demonstrate(s) diffuse fatty replacement. BI-RADS CATEGORY: (1) - 1 RECOMMENDATION: (ANNUAL) - Recommend routine annual screening mammography. [id number] 1 year screening LATERALITY: (B)
== END 2022-09-15 15:25 | disposition home or self-care (01) ==
LOC: DI.N 15:24
DX: Z12.31 Encounter for screening mammogram for malignant neoplasm of breast (principal)

== ENCOUNTER 2023-07-14 10:32 | Outpatient (CLI) | payer MEDICARE, MEDICAID ==
[2023-07-14] MEDS ORDERED: iohexoL-300 100 ML VIAL IVP ONE (12:12)
[2023-07-14] MEDS ORDERED: DIATRIZOATE MEGLU/DIATRIZO SOD 30 ML BOTTLE PO ONE (12:12)
--- NOTE | 2023-07-14 15:32 | CT Report ---
PROCEDURE: ABDOMEN/PELVIS W INDICATIONS: HIST OF ABD HERNIA CONTRAST: 100ml omni 300 TECHNIQUE: After the administration of oral and intravenous contrast, 5 mm thick sections acquired from the diap hragms to the symphysis. 5 mm thick coronal and sagittal reformats were acquired. For radiation dos e reduction, the following was used: automated exposure control, adjustment of mA and/or kV accordin g to patient size. COMPARISON: 12/23/2021 FINDINGS: Image quality: Excellent. Lung bases and heart: Unremarkable. Liver: No solid mass. Multiple low-density lesions likely represent cysts versus hemangiomata. These are stable. Gallbladder and biliary tree: No radiopaque stones or wall thickening. No biliary dilation. Spleen: No splenomegaly. Pancreas: No pancreatic ductal dilation. Adrenals: No adrenal nodule. Kidneys and ureters: No hydronephrosis. No renal cystic lesion which requires follow up. No solid mas s. Bowel and peritoneum: No bowel distension. No pathologic free fluid. Diverticulosis without evidence of diverticulitis. Lymph nodes: No central or retroperitoneal adenopathy. Vessels: No infrarenal aortic aneurysm. PELVIS Reproductive organs: There is endometrial thickening of the uterus, measuring 1.7 cm. The endometrium was not thickened on the previous CT. Bladder: No abnormal wall thickening, accounting for underdistension. Pelvic lymph nodes: No pelvic adenopathy by size criteria. Bones: No aggressive osseous abnormality. Other: No significant ventral or inguinal hernia. There is a diffuse thin anterior abdominal wall wit hout identification of a hernia. Mild posterior pelvic floor relaxation. IMPRESSION: 1. No acute abdominal process. 2. Thickened endometrium, measuring 1.7 cm. 3. Mild posterior pelvic floor relaxation. 4. Diverticulosis without evidence of diverticulitis. Recommend pelvic ultrasound for further evaluation of the thickened endometrium. Findings may potenti ally represent endometrial hyperplasia or endometrial carcinoma. Reviewed by: Jeison Quick MD on 07/14/2023 3:31 PM PST Approved by: Jeison Quick MD on 07/14/2023 3:31 PM PST Station ID: [id number]
== END 2023-07-14 10:33 | disposition home or self-care (01) ==
LOC: DI 10:32
PROVIDERS: ATTEND Surgery
DX: Z87.19 Personal history of other diseases of the digestive system (principal); R93.89 Abnormal findings on diagnostic imaging of other specified body structures; N81.89 Other female genital prolapse; K57.90 Diverticulosis of intestine, part unspecified, without perforation or abscess without bleeding
CPT/HCPCS: 74177; Q9963; Q9967

== ENCOUNTER 2023-09-13 13:10 | Outpatient (CLI) | payer MEDICARE, MEDICAID ==
--- NOTE | 2023-09-14 08:45 | Mammography Report ---
BILATERAL DIGITAL SCREENING MAMMOGRAM 3D/2D: 09/13/2023 CLINICAL: Routine screening. Comparison is made to exams dated: 09/15/2022 mammogram and 06/25/2021 mammogram - [facility]. Both breasts are almost entirely fatty (category a/<25% glandular tissue). No significant masses, calcifications, or other findings are seen in either breast. There has been no significant interval change. IMPRESSION: NEGATIVE There is no mammographic evidence of malignancy. A 1 year screening mammogram is recommended. Based on the Tyrer Cuzick model (a risk assessment model) the patient's lifetime risk is 4.4% and her 10 year risk is 1.6%. According to the ACR, ACS, and NCCN guidelines, an annual breast MRI exam jaime g with mammogram is recommended if the patient's lifetime risk is 20% or greater. This exam was interpreted at Station ID: [id number]. NOTE: For mammograms, a report in lay terms will be sent to the patient. Approximately 15% of breast malignancies will not be visualized mammographically. In the management of a palpable breast mass, a negative mammogram must not discourage biopsy of a clinically suspicious lesion. Electronically Signed By: Live [email or web address]:09/13/2023 14:20:39 letter sent: No_Letter ACR BI-RADS Category 1: Negative 3341F PARENCHYMAL PATTERN: (F) - The breast(s) demonstrate(s) diffuse fatty replacement. BI-RADS CATEGORY: (1) - 1 Mammogram [id number] 1 year screening LATERALITY: (B)
== END 2023-09-13 13:11 | disposition home or self-care (01) ==
LOC: DI.N 13:10
DX: Z12.31 Encounter for screening mammogram for malignant neoplasm of breast (principal)